=== PATIENT | male | born 1990 | race Hispanic/Latino ===

== ENCOUNTER 2020-05-08 02:33 | Emergency (ER) | payer SELFPAY ==
[2020-05-08] MEDS ORDERED: LIDOCAINE HCL 1% 20 ML VIAL ONE (03:04)
[2020-05-08] MEDS ORDERED: OCTYL 2-CYANOACRYLATE 1 EACH TP ONE (04:30)
== END 2020-05-08 05:26 | disposition home or self-care (01) ==
LOC: EDH 02:33
DX: S51.012A Laceration without foreign body of left elbow, initial encounter (principal); J45.909 Unspecified asthma, uncomplicated; W01.198A Fall on same level from slipping, tripping and stumbling with subsequent striking against other object, initial encounter; Y93.89 Activity, other specified; Y92.098 Other place in other non-institutional residence as the place of occurrence of the external cause; Y99.8 Other external cause status